=== PATIENT | female | born 1945 | race Caucasian/White ===

== ENCOUNTER 2016-06-02 15:14 | Outpatient (RCR) | payer MEDICARE, BC ==
[~2016-06-02 15:14] MED LIST: AMOXICILLIN 50500 MG; ASPIR-LOW81 MG PO; ASPIRIN E.C. 8181 MG PO; BENFOTIAMINE; BETAPACE 80MG80 MG PO; CELEBREX 1100 MG/CAP PO; CENTRUM1 TAB PO; CYMBALTA 60MG60 MG PO; DARVOCET-N-101 UDTAB PO; DETROL LA4 PO; EPA FISH OIL1000 MG PO; FERROUS SU325 MG/TAB PO; FISH OIL CONC1000 MG PO; FOLIC ACID PO; FOLIC ACID800 MCG PO; GLOCOSAMINE; GLUCOSAMINE/CHONDROI PO; HCTZ 25MG TAB25 MG PO; HCTZ 25MG25 MG PO; HCTZ12.5TAB PO; INDOCIN 25MG CA25 MG PO; IRON TABLETS325 MG PO; LIPITOR 10MG10 MG PO; LISINOPRIL/HCTZ1 TA1 PO; LORTAB 7.5/5001 TAB PO; MOBIC; MOBIC15 MG PO; MULTI VITAMINS1 TAB PO; NORCO 325 MG-101 TAB PO; PREDNISONE20 MG PO; STOOL SOFTENER100 M2 PO; SYNTHROID 0.0.025 MG PO; TUMS 500500 MG PO; TYLENOL 325MG325 MG PO; VENTOLIN0.09 MG IH; VESICARE; VESICARE10 MG PO; VITAMIN C500 MG PO; VITAMINS; ZANTAC 150MG T150 MG PO
== END 2016-06-05 09:52 | disposition still patient (30) ==
LOC: MKS.ESL.OT 15:14
DX: M47.896 Other spondylosis, lumbar region (principal)
CPT/HCPCS: G8978-GO; G8979-GO; G8980-GO

== ENCOUNTER → 2017-02-16 | Outpatient (CLI) | payer MEDICARE, BC | LOC: MC.RAD 08:54 | DX: Z12.31 Encounter for screening mammogram for malignant neoplasm of breast (principal) ==

== ENCOUNTER 2018-02-12 11:37 | Emergency (ER) | payer MEDICARE, BC ==
[~2018-02-12] VITALS: Ht 162.6 cm; Wt 111.4 kg
[~2018-02-12 11:37] MED LIST changes: -LIPITOR 10MG10 MG PO; +LIPITOR20 MG PO
[2018-02-12 11:39] VITALS: BP 144/90; TEMP 98.2
[2018-02-12] MEDS ORDERED: PRINIVIL2.5 MG PO (12:06)
[2018-02-12] MEDS ORDERED: PLAVIX 75MG TAB75 MG PO (12:07)
[2018-02-12] MEDS ORDERED: NITROSTAT0.4 MG/TAB SL (12:07)
[2018-02-12] MEDS ORDERED: MYRBETR50MG PO (12:07)
[2018-02-12 13:44] VITALS: PULSE 73
== END 2018-02-12 13:45 | disposition home or self-care (01) ==
LOC: COL.ER 11:37
DX: S09.90XA Unspecified injury of head, initial encounter (principal); S50.12XA Contusion of left forearm, initial encounter; S00.03XA Contusion of scalp, initial encounter; I10 Essential (primary) hypertension; M54.5 Low back pain; G89.29 Other chronic pain; Z79.01 Long term (current) use of anticoagulants; Z79.82 Long term (current) use of aspirin; Z79.02 Long term (current) use of antithrombotics/antiplatelets; Z95.5 Presence of coronary angioplasty implant and graft; Z79.899 Other long term (current) drug therapy; W01.198A Fall on same level from slipping, tripping and stumbling with subsequent striking against other object, initial encounter; Y92.512 Supermarket, store or market as the place of occurrence of the external cause

== ENCOUNTER → 2018-04-01 | Outpatient (CLI) | payer MEDICARE, BC ==
[~2018-04-01] MED LIST changes: +MYRBETR50MG PO; +NITROSTAT0.4 MG/TAB SL; +PLAVIX 75MG TAB75 MG PO; +PRINIVIL2.5 MG PO
== END ==
LOC: COL.RAD 08:47
DX: N18.3 Chronic kidney disease, stage 3 (moderate) (principal)

== ENCOUNTER → 2018-05-09 | Outpatient (CLI) | payer MEDICARE, BC | LOC: MC.RAD 04-02 14:00 | DX: Z12.31 Encounter for screening mammogram for malignant neoplasm of breast (principal) ==

== ENCOUNTER 2020-04-16 12:49 | Observation (INO) | payer MEDICARE, BC ==
[~2020-04-16] VITALS: Ht 162.6 cm; Wt 113.6 kg
[2020-04-16 13:41] LABS: BASO % 0.4 % (0.0-2.0); EOS # 0.2 (0.0-0.7); GRAN # 4.3 (1.4-6.5); GRAN % 60.5 % (42.2-75.2); HEMOGLOBIN 11.8 g/dl (12.5-16.0); LYMPH # 1.7 (1.2-3.4); LYMPH % 24.4 % (20.0-51.0); MEAN CELL VOLUME 86 fl (80.0-100.0); MEAN CORPUSCULAR HEMOGLOBIN 27 pg (27.0-31.0); MEAN CORPUSCULAR HGB CONC 32 g/dl (33.0-37.0); MEAN PLATELET VOLUME 10.7 fl (7.4-10.4); MONO # 0.8 (0.1-0.6); MONO % 11.4 % (1.7-9.3); PLATELET COUNT 224 K/mm3 (130-400); REDCELL DISTRIBUTION WIDTH-CV 15.1 % (11.5-14.5)
[2020-04-16 13:47] LABS: PROTHROMBIN TIME 11.3 SECONDS (9.7-12.8)
[2020-04-16 13:51] LABS: ALBUMIN 4.1 gm/dL (3.5-5.0); BILIRUBIN,TOTAL 0.4 mg/dL (0.0-1.0); CALCIUM 8.8 mg/dL (8.4-10.2); CREATININE, serum 1.35 (0.52-1.25); POTASSIUM 4.6 mmol/L (3.4-5.0); TOTAL PROTEIN 7.3 gm/dL (6.4-8.2)
[2020-04-16 14:02] LABS: TROPONIN-I 1.1 ng/mL (0.000-0.035)
--- NOTE | 2020-04-16 18:31 | NUR ---
DR GONZALEZ STATES TO RESUME HEPARIN GTT, HEPARIN GTT RESUMED AT 1000 UNITS/HR
[2020-04-16 18:45] VITALS: BP 120/88; PULSE 77; TEMP 97.7
--- NOTE | 2020-04-16 18:45 | NUR ---
PATIENT ADMITED INTO ROOM 319 FROM STRIKER OFF AT SHIFT CHANGE. VSS. NO C/O PAIN. RIGHT RADIAL SITE IS CD&I WITH RADIAL BAND INPLACE WITH 14CC OF AIR. PATIENT STABLE. PATHOLOGY ASSISTANT TAKING OVER CARE.
[2020-04-16 21:20] VITALS: BP 131/49; PULSE 67; TEMP 98.4
[2020-04-17] VITALS (7 sets, daily range): BP systolic 103–139; BP diastolic 46–64; PULSE 65–74; TEMP 97.5–98.5
--- NOTE | 2020-04-17 11:32 | NUR ---
Pt assessment completed and charted. Medications administered per may. Pt A&O, independent in room, on room air. Pt denies any pain, dizziness, N/V/D, chest pain. LS cta, HRRR. LWR IV w/ hep gtt running at 9ml currently, increased from 7.5ml after hep xa drawn. Verified w/ JOSH Bourgeois. BS active, pt had large BM this morning. No edema noted, pulses strong bilaterally. Pt will remain on hep gtt today and reassessed tomorrow w/ Dr. Garces. All questions answered, no further needs at this time.
--- NOTE | 2020-04-17 12:14 | NUR ---
Plan is to return home with her partner Qasim [place] . Patient reoprts that her DPOA is her partner and her DTR Dacia Lutz . SW met with patient about her care. patient shares that she resides locally. Patient reports that PCP is Dr. Mejia and uses [facility] for RX. Patient shares that she uses a walker, can, stair lift, and had knee replacement at some point. Patient indicated that she is fairly independent and has declined any HHS or skilled services. Will continue to follow for care support.
[2020-04-17 12:44] LABS: CALCIUM 8.9 mg/dL (8.4-10.2); CREATININE, serum 1.18 (0.52-1.25); POTASSIUM 4.5 mmol/L (3.4-5.0)
--- NOTE | 2020-04-17 17:56 | NUR ---
Pt doing well today, no issues or complaints noted. Pt remains on hep gtt, next hep xa to be drawn at 2215. Current hep xa in goal, no change to rate made, new bag started, verified w/ JOSH Reed.
--- NOTE | 2020-04-17 19:00 | NUR ---
PT IS LAYING IN BED AT THIS TIME AND HAS NO C/O PAIN OR DISCOMFORT. PT'S HEP GTT IS RUNNING AT 9ML, NEXT HEPXA SHOULD BE DRAWN AT 2215 PER REPORT FROM JOSH MINAYA. NO FURTHER CONCERNS AT THIS TIME. WILL CONTINUE TO MONITOR.
[2020-04-17] MEDS ORDERED: LIORESAL 1010 MG/TAB PO (20:41)
[2020-04-18 02:56] VITALS: BP 114/54; PULSE 66; TEMP 97.9
--- NOTE | 2020-04-18 03:57 | NUR ---
PT ALERT AND ORIENTATED X4. AMBULATES TO BATHROOM WITH 1 ASSIST. STEADY GAIT. INT TO RIGHT FA. WRIST PRESSURE BAND TO RIGHT WRIST IN PLACE. AFTER 2 HOURS STARTED TO RELEASE AIR AT 5ML SEGMENTS EVERY 15-20MIN. NO BLEEDING NOTED. BAND REMOVED AND FOLDED 2X2'S APPLIED WITH BANDAID OVER TOP. DENIES ANY PAIN THRU THE NIGHT. WILL CONTINUE TO MONITOR. CALL LIGHT IN REACH.
--- NOTE | 2020-04-18 06:38 | NUR ---
PT HAD UNEVENTFUL NIGHT. HEPARIN GTT REMAINED IN GOAL. NO FURTHER CONCERNS.
[2020-04-18 07:01] LABS: MEAN CELL VOLUME 86 fl (80.0-100.0); MEAN CORPUSCULAR HEMOGLOBIN 28 pg (27.0-31.0); MEAN CORPUSCULAR HGB CONC 32 g/dl (33.0-37.0); MEAN PLATELET VOLUME 11.5 fl (7.4-10.4); PLATELET COUNT 234 K/mm3 (130-400); RED BLOOD COUNT 3.98 M/mm3 (4.10-5.30); REDCELL DISTRIBUTION WIDTH-CV 15.4 % (11.5-14.5)
[2020-04-18 07:04] LABS: HEMATOCRIT 34.2 % (37.0-47.0)
[2020-04-18 07:10] LABS: CALCIUM 8.6 mg/dL (8.4-10.2); CREATININE, serum 1.08 (0.52-1.25); POTASSIUM 4.3 mmol/L (3.4-5.0)
[2020-04-18 07:47] VITALS: BP 122/55; PULSE 73; TEMP 98.1
[2020-04-18] MEDS ORDERED: IMDUR 60MG60 MG/TAB PO ×2 (10:36)
[2020-04-18] MEDS ORDERED: LIPITOR 80MG80 MG PO ×2 (10:36)
--- NOTE | 2020-04-18 11:15 | NUR ---
Pt assessment completed and charted, medications administered per may. Pt A&O, independent in room, on room air, LS cta, HRRR. INT IV flushes w/o issues. Pt denies dizziness, N/V/D, chest pain, abd pain, general pain. Pulses strong bilaterally. Pt to have Venous Duplex this weekend, ordered on sunday. Unable to complete, services not available, hospitalist aware. Hep gtt dc'd. Pt ambulating halls w/ this nurse, ambulated 150 ft w/ walker. No further needs at this time. Goal: ambulate multiple times w/o symptoms.
--- NOTE | 2020-04-18 11:42 | NUR ---
Sharon reports possible discharge today 04/18 if patient is able to walk the halls without chest pain. If patient is unable, Sharon reports a transfer to [facility] in [place].
[2020-04-18 12:08] VITALS: BP 114/55; PULSE 63; TEMP 98.2
--- NOTE | 2020-04-18 14:06 | NUR ---
Pt ambulated 150 ft w/ this nurse again, no issues noted, pt denied chest pain, dizziness, palpitations. No concerns expressed.
--- NOTE | 2020-04-18 14:59 | NUR ---
Pt discharged, LWR INT IV dc'd w/ cath tip intact. Discharge instructions discussed and reviewed w/ pt who verbalized understanding, all questions answered. No further needs. Pt escorted out via wc w/ sig. other in private car.
== END 2020-04-18 15:01 | disposition home or self-care (01) ==
LOC: COL.ER 12:49 → MEDICAL 14:30
PROVIDERS: Family Medicine; Physician Assistant; Student in an Organized Health Care Education/Training Program; ADMIT Student in an Organized Health Care Education/Training Program
DX: I21.4 Non-ST elevation (NSTEMI) myocardial infarction (principal); I25.119 Atherosclerotic heart disease of native coronary artery with unspecified angina pectoris; I10 Essential (primary) hypertension; N17.9 Acute kidney failure, unspecified; R60.0 Localized edema; I48.0 Paroxysmal atrial fibrillation; E11.9 Type 2 diabetes mellitus without complications; E78.5 Hyperlipidemia, unspecified; I05.9 Rheumatic mitral valve disease, unspecified; D64.9 Anemia, unspecified; Z79.02 Long term (current) use of antithrombotics/antiplatelets; Z79.82 Long term (current) use of aspirin; Z79.899 Other long term (current) drug therapy; Z95.818 Presence of other cardiac implants and grafts; Z88.1 Allergy status to other antibiotic agents; Z88.5 Allergy status to narcotic agent; Z88.2 Allergy status to sulfonamides; Z88.8 Allergy status to other drugs, medicaments and biological substances
CPT/HCPCS: 99222-AI; 99239; J1644; J2250; J3010; J7040

== ENCOUNTER → 2020-05-24 | Outpatient (CLI) | payer MEDICARE, BC ==
[~2020-05-24] MED LIST changes: +IMDUR 60MG60 MG/TAB PO; +LIORESAL 1010 MG/TAB PO; +LIPITOR 80MG80 MG PO; +RANEXA 500MG T500 MG PO
== END ==
LOC: ZCOL.LAB 11:12
DX: Z01.812 Encounter for preprocedural laboratory examination (principal); Z20.822 Contact with and (suspected) exposure to COVID-19

== ENCOUNTER 2020-08-19 04:16 | Emergency (ER) | payer MEDICARE, BC ==
[~2020-08-19] VITALS: Ht 162.6 cm; Wt 113.6 kg
[~2020-08-19 04:16] MED LIST changes: -RANEXA 500MG T500 MG PO
[2020-08-19 04:21] VITALS: TEMP 98.2
[2020-08-19 04:35] LABS: BASO % 0.3 % (0.0-2.0); EOS # 0.3 (0.0-0.7); EOS % 3.4 % (0-4.0); GRAN % 54.4 % (42.2-75.2); HEMOGLOBIN 11.2 g/dl (12.5-16.0); LYMPH # 2.1 (1.2-3.4); LYMPH % 28.6 % (20.0-51.0); MEAN CELL VOLUME 87 fl (80.0-100.0); MEAN CORPUSCULAR HEMOGLOBIN 28 pg (27.0-31.0); MEAN CORPUSCULAR HGB CONC 32 g/dl (33.0-37.0); MEAN PLATELET VOLUME 10.1 fl (7.4-10.4); PLATELET COUNT 263 K/mm3 (130-400); RED BLOOD COUNT 4.08 M/mm3 (4.10-5.30); REDCELL DISTRIBUTION WIDTH-CV 15.9 % (11.5-14.5)
[2020-08-19 04:36] LABS: HEMATOCRIT 35.3 % (37.0-47.0)
[2020-08-19 04:44] LABS: ALANINE AMINOTRANSFERASE 16 U/L (4-34); ALBUMIN 4.2 gm/dL (3.5-5.0); ALKALINE PHOSPHATASE 59 U/L (50-136); ANION GAP 6 mmol/L (7-16); AST,SGOT 25 U/L (15-37); BILIRUBIN,TOTAL 0.5 mg/dL (0.0-1.0); BLOOD UREA NITROGEN 29 mg/dL (7-17); CARBON DIOXIDE 27 mmol/L (22-30); CHLORIDE 105 mmol/L (98-107); CREATININE, serum 1.43 (0.52-1.25); GLUCOSE 140 mg/dL (74-106); POTASSIUM 3.9 mmol/L (3.4-5.0); SODIUM 138 mmol/L (137-145); TOTAL PROTEIN 7.6 gm/dL (6.4-8.2)
[2020-08-19 04:56] LABS: TROPONIN-I < 0.012 ng/mL (0.000-0.035)
[2020-08-19] MEDS ORDERED: RANEXA 500MG T500 MG PO (05:34)
[2020-08-19 10:41] VITALS: BP 119/61; PULSE 76
== END 2020-08-19 10:41 | disposition home or self-care (01) ==
LOC: COL.ER 04:16
PROVIDERS: Emergency Medicine
DX: R07.89 Other chest pain (principal); I25.10 Atherosclerotic heart disease of native coronary artery without angina pectoris; I10 Essential (primary) hypertension; E78.5 Hyperlipidemia, unspecified; I48.0 Paroxysmal atrial fibrillation; E11.9 Type 2 diabetes mellitus without complications; I25.2 Old myocardial infarction; Z79.82 Long term (current) use of aspirin; Z79.02 Long term (current) use of antithrombotics/antiplatelets; Z79.899 Other long term (current) drug therapy

== ENCOUNTER 2021-02-28 09:00 | Outpatient (RCR) | payer MEDICARE, BC ==
[~2021-02-28 09:00] MED LIST changes: +RANEXA 500MG T500 MG PO
== END 2021-03-01 | disposition home or self-care (01) ==
LOC: PT.GENESIS
DX: R29.898 Other symptoms and signs involving the musculoskeletal system (principal); M54.2 Cervicalgia

== ENCOUNTER 2021-03-02 09:24 | Outpatient (RCR) | payer MEDICARE, BC | END 2021-03-11 | disposition home or self-care (01) | LOC: PT.GENESIS | DX: R53.1 Weakness (principal) ==

== ENCOUNTER 2021-05-09 20:37 | Emergency (ER) | payer MEDICARE, BC ==
[~2021-05-09] VITALS: Ht 160 cm; Wt 106.8 kg
[~2021-05-09 20:37] MED LIST changes: -CEPHALEXIN500 M1 PO
[2021-05-09] MEDS ORDERED: CEPHALEXIN500 M1 PO (21:24)
[2021-05-09 21:45] VITALS: BP 131/63; PULSE 83; TEMP 98.5
== END 2021-05-09 21:45 | disposition home or self-care (01) ==
LOC: COL.ER 20:37
DX: S51.811A Laceration without foreign body of right forearm, initial encounter (principal); I25.10 Atherosclerotic heart disease of native coronary artery without angina pectoris; Z88.2 Allergy status to sulfonamides; Z79.02 Long term (current) use of antithrombotics/antiplatelets; W01.198A Fall on same level from slipping, tripping and stumbling with subsequent striking against other object, initial encounter; Y92.009 Unspecified place in unspecified non-institutional (private) residence as the place of occurrence of the external cause

== ENCOUNTER → 2021-05-09 | Outpatient (RCR) | payer MEDICARE, BC ==
[~2021-05-09] MED LIST changes: +CEPHALEXIN500 M1 PO
== END | disposition home or self-care (01) ==
LOC: PT.GENESIS
DX: R53.1 Weakness (principal)

== ENCOUNTER 2022-04-05 12:45 | Outpatient (RCR) | payer MEDICARE, BC ==
[~2022-04-05 12:45] MED LIST changes: +CEPHALEXIN500 M1 PO
== END 2022-04-11 | disposition home or self-care (01) ==
LOC: PT.GENESIS
DX: R29.898 Other symptoms and signs involving the musculoskeletal system (principal)

== ENCOUNTER 2022-06-02 10:30 | Outpatient (RCR) | payer MEDICARE, BC | END 2022-06-09 | disposition home or self-care (01) | LOC: PT.GENESIS | DX: R29.898 Other symptoms and signs involving the musculoskeletal system (principal) ==

== ENCOUNTER 2022-07-07 10:00 | Outpatient (RCR) | payer MEDICARE, BC | END 2022-07-09 | disposition home or self-care (01) | LOC: PT.GENESIS | DX: R29.898 Other symptoms and signs involving the musculoskeletal system (principal) ==